=== PATIENT | male | born 1985 | race Hispanic/Latino ===

== ENCOUNTER 2023-11-16 03:24 | Emergency (ER) | payer SELFPAY ==
[2023-11-16 03:25] VITALS: BP 120/77; PULSE 89; RESP 17; TEMP 35.8; O2SAT 98; BMI 22.5
[2023-11-16] MEDS: Penicillin Vk 250 MG Tablet 500 MG PO (03:55)
[2023-11-16] MEDS: Lidocaine 2% /Epi 1:100 (20ml) 20 ML VIAL INFILT (03:55)
--- NOTE | 2023-11-16 04:37 | EDS_ITS ---
HPI History of Present Illness Chief Complaint: Dental Informant: patient and friend Narrative Narrative: Patient is a 37-year-old male who reports no significant past medical history. He states he has bad teeth and that he has noticed pain and irritation in both the left upper and lower jaw without any trauma. He denies any trouble breathing or swallowing but states that the pain is gradually increased and now he has swelling to the left upper face and has concern for infection and therefore comes in for evaluation PFSH PFS no medical history Home Medications oxycodone-acetaminophen 5 mg-325 mg tablet (Percocet) 1 tab PO Q6H PRN pain 3 days #12 tabs 11/16/23 [Rx Last Taken Unknown] penicillin V potassium 500 mg tablet 500 mg PO 4X/DAY 10 days #40 tabs 11/16/23 [Rx Last Taken Unknown] Allergy/AdvReac Type Severity Reaction Status Date / Time No Known Allergies Allergy Verified 11/16/23 03:25 Social History Smoking Status: Current every day smoker tobacco type: cigarettes ROS ROS ED Constitutional Constitutional ED: Denies chills or fever(s) ENT ENT ED: Reports other Details: Positive dental pain and facial swelling ; Denies sore throat Cardiovascular Cardiovascular: Denies chest pain Respiratory/Chest Respiratory/Chest: Denies cough or dyspnea Gastrointestinal Gastrointestinal: Denies abdominal pain, diarrhea, nausea or vomiting Genitourinary Genitourinary ED: Denies dysuria Musculoskeletal Musculoskeletal: Denies myalgias Integumentary Denies rash Neurologic Neurologic: Denies headache(s) Hematologic/Lymphatic Hematologic/Lymphatic: Denies easy bleeding or easy bruising EXAM Physical Exam Const Vital Signs: 11/16/23 03:25 11/16/23 04:41 Temperature 96.5 F L Temperature Source Temporal Pulse Rate 89 91 Respiratory Rate 17 16 Blood Pressure 120/77 Blood Pressure Mean 91 Pulse Ox 98 97 Oxygen Delivery Method Room Air Positive well nourished and well developed General Appearance ED: well developed; Negative for pallor HEENT HEENT Narrative: Multiple dental caries are present. Along the left upper gingiva tooth #13 there is soft tissue swelling and a small area of discoloration concerning for developing abscess. There is a similar appearance around tooth #20. No tongue or lip swelling no airway edema or compromise no signs of ANUG. Eyes PERRL and EOMs intact bilaterally General Eye ED: Negative for scleral icterus Neck supple Neck Narrative: No brawny edema in the submental space suggest Pavel's angina Resp normal respiratory effort and clear to auscultation bilaterally Cardio regular rate and regular rhythm Extremity normal to inspection Neuro oriented x3, CN's II-XII intact bilaterally and no sensory deficits noted Sensorium / Orientation: alert Motor Exam: strength 5/5 throughout Psych mental status grossly normal Skin no rashes or lesions noted General Skin Exam: Negative for jaundice or pallor MDM MDM MDM Narrative Medical decision making narrative: Patient presented to the ER with stable vitals and in no acute respiratory distress. He had no physical exam findings concerning for ANUG or Ludewig's angina. There was soft tissue swelling and changes along gingiva concerning for an upper and lower dental abscess these were small in nature and did not feel they would be amenable to incision and drainage at this time. Therefore the patient underwent dental blocks as documented below for pain control and was started on antibiotics. At this time as there is no signs of systemic infection or airway compromise there is no need for further workup and he is otherwise safe for discharge Patient was given a left superior and inferior alveolar dental block. 1.5 mL of 0.5% Marcaine and 1.5 mL of 2% lidocaine with epinephrine were used to inject both the upper and lower location. Patient achieved good anesthesia with injections and tolerated procedure well without complication. History & Record Review Discussion w/independent historian: Patient and Friend Discharge Plan Triage Chief Complaint: Dental ED Provider: Sina Franco Dx/Rx/DC Orders Clinical Impression: Dental abscess, Dental caries Instructions: Dental Abscess Prescriptions: New penicillin V potassium 500 mg tablet 500 mg PO 4X/DAY 10 Days Qty: 40 0RF oxycodone-acetaminophen [Percocet] 5-325 mg tablet 1 tab PO Q6H PRN (Reason: pain) 3 Days Qty: 12 0RF Primary Care Provider: Care Physician,No Primary Referrals: Care Physician,No Primary [Primary Care Provider] - Activity Restrictions/Additional Instructions: Please take your antibiotics as directed to resolve your dental infection. Follow-up with your dentist of choice for further evaluation and if you feel like symptoms are worsening or you have difficulty breathing or swallowing please return to the ER for repeat evaluation Disposition Disposition: Home, Self Care Discharge Date/Time: 11/16/23 04:52 Capacity [employer] Technician Reflex Medical hold order details:: IF a medical hold is selected below, a suggested order for a MEDICAL HOLD will reflex upon signing the document. Next of kin: [place] law dictates a PRIORITY LIST for identifying legal decision-maker/legal next of kin in the following order (LNOK): 1st: The patient?s legal guardian, if any 2nd: The patient's spouse (if status is questionable, consult Risk Management) 3rd: The patient?s adult child(amelia) (majority, if multiple children) 4th: The patient?s parents 5th: The patient?s adult siblings (majority, if multiple children siblings)
[2023-11-16 04:41] VITALS: PULSE 91; RESP 16; O2SAT 97
== END 2023-11-16 04:52 | disposition home or self-care (01) ==
PROVIDERS: Emergency Provider Emergency Medicine; Visit Provider Emergency Medicine
DX: K04.7 Periapical abscess without sinus (principal); K02.9 Dental caries, unspecified; F17.210 Nicotine dependence, cigarettes, uncomplicated
CPT/HCPCS: 64400; 41800; 64999; 99282